=== PATIENT | female | born 1955 ===

== ENCOUNTER 2017-09-17 11:47 | Day surgery (SDC) | payer OTHER ==
[2017-09-17] MEDS ORDERED: Lactated Ringer's 500 ML IV SCH (13:30)
[2017-09-17] MEDS ORDERED: Propofol 10 mg/ml Inj (20 ML) ONE (13:39)
[2017-09-17] MEDS ORDERED: Lidocaine Hydrochloride 5 ML INJ ONE (13:39)
[2017-09-17] MEDS ORDERED: Lactated Ringer's 500 ML IV ONE (13:49)
[2017-09-17 14:38] VITALS: TEMP 98.7
[2017-09-17 14:56] VITALS: PULSE 59
[2017-09-17 15:06] VITALS: BP 113/61; RESP 17; O2SAT 98
== END 2017-09-17 15:20 | disposition home or self-care (01) ==
LOC: C.ENDO 11:47
PROVIDERS: ATTEND Internal Medicine Gastroenterology
DX: K29.50 Unspecified chronic gastritis without bleeding (principal); K31.7 Polyp of stomach and duodenum; Z12.11 Encounter for screening for malignant neoplasm of colon; K64.8 Other hemorrhoids; K21.9 Gastro-esophageal reflux disease without esophagitis
CPT/HCPCS: 43239; 43251; 45378; 88305; 88342; J2704; J7120

== ENCOUNTER 2018-07-23 10:37 | Emergency (ER) | payer OTHER ==
--- NOTE | 2018-07-23 11:37 | C.PDOC ---
History Of Present Illness 62 year old female presents to the ED for evaluation of lower back pain and left knee pain s/p slip and fall 2 hours prior to arrival in the morning today. Patient reports she was walking and slip and fell on an uneven sidewalk. She notes she was able to stand up. Denies head injury, shortness of breath, chest pain, loss of consciousness, tingling, numbness, and any other associated symptoms. Time Seen by Provider: 07/23/18 11:11 Chief Complaint (Nursing): Back Pain History Per: Patient History/Exam Limitations: no limitations Onset/Duration Of Symptoms: Hrs Current Symptoms Are (Timing): Still Present Past Medical History Reviewed: Historical Data, Nursing Documentation, Vital Signs Vital Signs: Last Vital Signs Temp 98.8 F 07/23/18 10:51 Pulse 66 07/23/18 10:51 Resp 18 07/23/18 10:51 BP 124/77 07/23/18 10:51 Pulse Ox 100 07/23/18 10:51 - Medical History PMH: Anxiety, Arthritis, Asthma, Back Problems (HERNIATED DISC), CAD, GERD, Hypercholesterolemia Denies: Chronic Kidney Disease Surgical History: Family History: States: Unknown Family Hx, Stroke, Diabetes - Social History Hx Tobacco Use: No Hx Alcohol Use: Yes Hx Substance Use: No - Immunization History Hx Tetanus Toxoid Vaccination: No Hx Influenza Vaccination: Yes Hx Pneumococcal Vaccination: No Review Of Systems Except As Marked, All Systems Reviewed And Found Negative. Constitutional: Negative for: Other (head injury. loss of consciousness.) Cardiovascular: Negative for: Chest Pain Respiratory: Negative for: Shortness of Breath Musculoskeletal: Positive for: Back Pain (left lower. ), Other (left knee pain.) Physical Exam - Physical Exam Appears: Non-toxic, No Acute Distress Skin: Normal Color, Warm, Dry Head: Atraumatic, Normacephalic Eye(s): bilateral: Normal Inspection Neck: Normal ROM, Supple Cardiovascular: Rhythm Regular, No Murmur Respiratory: Normal Breath Sounds, No Rales, No Rhonchi, No Wheezing Extremity: Normal ROM (of the left knee. able to flex and extend. ), Tenderness (mild tenderness to the anterior left knee. ), No Calf Tenderness, Capillary Refill (less than 2 seconds), No Deformity, No Swelling Pulses: Left Dorsalis Pedis: Normal, Right Dorsalis Pedis: Normal Neurological/Psych: Oriented x3, Normal Speech, Normal Motor, Normal Sensation, Normal Reflexes Gait: Steady ED Course And Treatment O2 Sat by Pulse Oximetry: 100 (RA) Pulse Ox Interpretation: Normal - Other Rad X-ray LT Knee X-Ray: Viewed By Me, Read By Radiologist Interpretation: FINDINGS: BONES: No acute fracture. Mild healed fracture deformity proximal fibula-similar. Intra medullary tibial niles with 2 proximal screws present-visualized [id number]. JOINTS: Tricompartmental osteoarthrosis-similar. JOINT EFFUSION: None. OTHER FINDINGS: Ponce's tendon insetional enesthesophyte.-similar. IMPRESSION: No acute fracture appreciated. No dislocation. Old healed fracture deformity proximal fibula- similar. Tricompartmental osteoarthrosis-similar. Intra medullary tibial niles fixation with [id number] X-ray LS X-Ray: Viewed By Me, Read By Radiologist Interpretation: FINDINGS: BONES: Normal alignment. No listhesis. No fracture. Mild Schmorl's node like indentations mostly superior endplates L3 most notable. DISC SPACES: Unremarkable. OTHER FINDINGS: L5-S1 facet sclerotic hypertrophic arthrosis. Posterior- sacral level soft tissue calcification /ossification. IMPRESSION: No fracture or subluxation. L5-S1 facet sclerotic hypertrophic arthrosis. Medical Decision Making Medical Decision Making: Plan: --Knee X-ray --X-ray LS --Naproxen --Lidoderm --Valium --Prednisone Progress/Update: Patient stable for discharge home. Prescribed Naproxen and Valium. Disposition - Disposition Referrals: Roberto Beyer MD [Non-Staff] - Kaylene Jamison MD [Staff Provider] - [facility] [Outside] Disposition: HOME/ ROUTINE Disposition Time: 12:51 Condition: STABLE Additional Instructions: Follow up with the medical doctor within 1-2 days. Return if worsened. Prescriptions: diaZEpam [Valium] 5 mg PO TID #21 tab Lidocaine 5% [Lidoderm] 1 each TP DAILY #10 patch Naproxen [Naprosyn] 500 mg PO BID #20 tab Instructions: Low Back Pain in Adults, Knee Pain Forms: [employer] (French) - Clinical Impression Clinical Impression: Contusion of back, Knee contusion - PA / KETTLE OPERATOR HEAD / Resident Statement MD/DO has reviewed & agrees with the documentation as recorded. - Scribe Statement The provider has reviewed the documentation as recorded by the Scribe (Susie Cox) All medical record entries made by the Scribe were at my direction and personally dictated by me. I have reviewed the chart and agree that the record accurately reflects my personal performance of the history, physical exam, medical decision making, and the department course for this patient. I have also personally directed, reviewed, and agree with the discharge instructions and disposition.
[2018-07-23] MEDS ORDERED: Naproxen 550 mg Tab PO STA (11:38)
[2018-07-23] MEDS ORDERED: Naproxen 550 mg Tab PO ONE (11:45)
[2018-07-23] MEDS ORDERED: Lidocaine 5% Patch TD STA (12:43)
[2018-07-23] MEDS ORDERED: Lidocaine 5% Patch TD ONE (12:50)
[2018-07-23 12:53] VITALS: BP 113/74; PULSE 58; RESP 20; TEMP 97.7
[2018-07-23 12:54] VITALS: O2SAT 100
--- NOTE | 2018-07-23 13:26 | RAD ---
Date of service: 07/23/2018 PROCEDURE: Radiographs of the Lumbar Spine. HISTORY: fall back pain, COMPARISON: No prior. FINDINGS: BONES: Normal alignment. No listhesis. No fracture. Mild Schmorl's node like indentations mostly superior endplates L3 most notable. DISC SPACES: Unremarkable. OTHER FINDINGS: L5-S1 facet sclerotic hypertrophic arthrosis. Posterior- sacral level soft tissue calcification /ossification IMPRESSION: No fracture or subluxation. L5-S1 facet sclerotic hypertrophic arthrosis.
--- NOTE | 2018-07-23 13:30 | RAD ---
Date of service: 07/23/2018 PROCEDURE: Left Knee Radiographs. HISTORY: Pain. COMPARISON: 02/01/2015 FINDINGS: BONES: No acute fracture. Mild healed fracture deformity proximal fibula-similar. Intra medullary tibial niles with 2 proximal screws present-visualized [id number] JOINTS: Tricompartmental osteoarthrosis-similar JOINT EFFUSION: None. OTHER FINDINGS: [place]ell's tendon insetional enesthesophyte.-similar IMPRESSION: No acute fracture appreciated. No dislocation. Old healed fracture deformity proximal fibula-similar Tricompartmental osteoarthrosis-similar Intra medullary tibial niles fixation with [id number]-[id number]
== END 2018-07-23 12:59 | disposition home or self-care (01) ==
LOC: C.ER 10:37
DX: S30.0XXA Contusion of lower back and pelvis, initial encounter (principal); S80.02XA Contusion of left knee, initial encounter; W01.0XXA Fall on same level from slipping, tripping and stumbling without subsequent striking against object, initial encounter; Y92.480 Sidewalk as the place of occurrence of the external cause

== ENCOUNTER 2019-01-01 14:18 | Emergency (ER) | payer OTHER ==
[2019-01-01 14:45] VITALS: RESP 18
--- NOTE | 2019-01-01 17:14 | CT ---
Date of service: 01/01/2019 PROCEDURE: CT HEAD WITHOUT CONTRAST. HISTORY: r/o ICH COMPARISON: 10/20/2015 TECHNIQUE: Axial computed tomography images were obtained through the head/brain without intravenous contrast. Radiation dose: Total exam DLP = 1071.36 mGy-cm. This CT exam was performed using one or more of the following dose reduction techniques: Automated exposure control, adjustment of the mA and/or kV according to patient size, and/or use of iterative reconstruction technique. FINDINGS: HEMORRHAGE: No intracranial hemorrhage. BRAIN: No mass effect or edema. No atrophy or chronic microvascular ischemic changes. VENTRICLES: Unremarkable. No hydrocephalus. CALVARIUM: Unremarkable. PARANASAL SINUSES: Unremarkable as visualized. No significant inflammatory changes. MASTOID AIR CELLS: Unremarkable as visualized. No inflammatory changes. OTHER FINDINGS: None. IMPRESSION: No acute intracranial hemorrhage. Unremarkable examination.
--- NOTE | 2019-01-01 17:20 | C.PDOC ---
History Of Present Illness 63 y/o female presents to ED complaining of left-sided headache for the past several days. Patient reports pain is not the worst of her life. She denies any fever or neck stiffness. Also complains of chronic knee pain. Chief Complaint (Nursing): Headache History Per: Patient History/Exam Limitations: no limitations Onset/Duration Of Symptoms: Days Current Symptoms Are (Timing): Still Present Past Medical History Reviewed: Historical Data, Nursing Documentation, Vital Signs Vital Signs: Last Vital Signs Temp 98.0 F 01/01/19 14:40 Pulse 70 01/01/19 14:40 Resp 18 01/01/19 14:40 BP 109/73 01/01/19 14:40 Pulse Ox 100 01/01/19 14:40 - Medical History PMH: Anxiety, Arthritis, Asthma, Back Problems (HERNIATED DISC), CAD, Fractures (L TIB/FIB W/ HARDWARE), GERD, Hypercholesterolemia Denies: Chronic Kidney Disease Surgical History: Family History: States: Stroke, Diabetes - Social History Hx Tobacco Use: No Hx Alcohol Use: Yes Hx Substance Use: No - Immunization History Hx Tetanus Toxoid Vaccination: No Hx Influenza Vaccination: Yes Hx Pneumococcal Vaccination: No Review Of Systems Except As Marked, All Systems Reviewed And Found Negative. Constitutional: Negative for: Fever, Chills Genitourinary: Negative for: Dysuria, Hematuria Musculoskeletal: Positive for: Neck Pain (neck stiffness), Other (Knee Pain). Negative for: Back Pain Neurological: Positive for: Headache (left-sided) Physical Exam - Physical Exam Appears: Non-toxic, No Acute Distress Skin: Warm, Dry Head: Atraumatic, Normacephalic Eye(s): bilateral: Normal Inspection Oral Mucosa: Moist Neck: Supple Cardiovascular: Rhythm Regular, No Murmur Respiratory: Normal Breath Sounds, No Rales, No Rhonchi, No Wheezing Extremity: No Deformity, Other (chronic arthritic changes to left knee) Extremity: Bilateral: Atraumatic, Normal ROM Neurological/Psych: Oriented x3, Normal Speech, Normal Motor, Normal Sensation ED Course And Treatment O2 Sat by Pulse Oximetry: 100 (RA) Pulse Ox Interpretation: Normal - CT Scan/US Head CT Other Rad Studies (CT/US): Read By Radiologist, Radiology Report Reviewed CT/US Interpretation: FINDINGS: HEMORRHAGE: No intracranial hemorrhage. BRAIN: No mass effect or edema. No atrophy or chronic microvascular ischemic changes. VENTRICLES: Unremarkable. No hydrocephalus. CALVARIUM: Unremarkable. PARANASAL SINUSES: Unremarkable as visualized. No significant inflammatory changes. MASTOID AIR CELLS: Unremarkable as visualized. No inflammatory changes. OTHER FINDINGS: None. IMPRESSION: No acute intracranial hemorrhage. Unremarkable examination. Medical Decision Making Medical Decision Making: Plan: --Head CT --Toradol 60 mg IM Disposition - Dis[facility] - Disposition: HOME/ ROUTINE Disposition Time: 17:25 Condition: IMPROVED Additional Instructions: NATE GALLAGHER, thank you for letting us take care of you today. The emergency medical care you received today was directed at your acute symptoms. If you were prescribed any medication, please fill it and take as directed. It may take several days for your symptoms to resolve. Return to the Emergency Department if your symptoms worsen, do not improve, or if you have any other problems. Please contact your doctor or call one of the physicians/clinics you have been referred to that are listed on the Patient Visit Information form that is included in your discharge packet. Bring any paperwork you were given at discharge with you along with any medications you are taking to your follow up visit. Our treatment cannot replace ongoing medical care by a primary care provider outside of the emergency department. Thank you for allowing the [facility] team to be part of your care today. Follow up with your primary care doctor and your orthopedic doctor this week for re-evaluation and further management. Prescriptions: Ibuprofen [Motrin] 600 mg PO Q6 PRN #20 tab PRN Reason: Pain, Moderate (4-7) Instructions: Headache, Adult, Chronic Knee Pain (DC) Forms: [employer] (Uruguayan) - Clinical Impression Clinical Impression: Headache, Chronic knee pain - Scribe Statement The provider has reviewed the documentation as recorded by the Zaire Tobar Provider Attestation: All medical record entries made by the Nicolaibnando were at my direction and personally dictated by me. I have reviewed the chart and agree that the record accurately reflects my personal performance of the history, physical exam, medical decision making, and the department course for this patient. I have also personally directed, reviewed, and agree with the discharge instructions and disposition.
[2019-01-01 17:44] VITALS: BP 104/65; PULSE 59; TEMP 97.1
[2019-01-01 18:44] VITALS: O2SAT 100
== END 2019-01-01 17:44 | disposition home or self-care (01) ==
LOC: C.ER 14:18
DX: R51 Headache (principal); G89.29 Other chronic pain; M25.562 Pain in left knee; E78.00 Pure hypercholesterolemia, unspecified; I25.10 Atherosclerotic heart disease of native coronary artery without angina pectoris
CPT/HCPCS: 70450; 96372; 99285; J1885